=== PATIENT | male | born 1970 | race Caucasian/White ===

== ENCOUNTER 2020-02-24 17:16 | Emergency (ER) | payer BC ==
[2020-02-24 17:34] VITALS: TEMP 98.4
[2020-02-24] MEDS ORDERED: oxyCODONE-APAP 7.5-325MG 1 EACH TAB PO STA (17:39)
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
[2020-02-24] MEDS ORDERED: METHOCARBAMOL 750 MG TAB PO STA (18:46)
[2020-02-24] MEDS ORDERED: ACET/COD 300 MG/30 MG STARTER PACK 6 TAB BTL PO STA (18:47)
[2020-02-24] MEDS ORDERED: DIAZEPAM 5 MG/ML 2 ML INJ IM ONE (18:48)
[2020-02-24 19:27] VITALS: BP 145/90; PULSE 74; RESP 19
== END 2020-02-24 19:26 | disposition home or self-care (01) ==
LOC: EC 17:16
DX: S16.1XXA Strain of muscle, fascia and tendon at neck level, initial encounter (principal); F17.200 Nicotine dependence, unspecified, uncomplicated; Y04.0XXA Assault by unarmed brawl or fight, initial encounter
CPT/HCPCS: 72125; 70450; 99283; 96372; J3360